=== PATIENT | male | born 1985 | race Caucasian/White ===

== ENCOUNTER 2019-01-28 23:24 | Emergency (ER) | payer OTHER ==
--- NOTE | 2019-01-28 23:51 | ED Physician Documentation ---
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 He was having a lot of pain but he cannot remember if it was really itchy. He noted improving of the redness over the course the next couple of days but the foot started to swell and the skin got all bubbly so he went to the emergency department in [place] on 24 January. He was diagnosed with athlete's foot given an antifungal spray and placed on Keflex. 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 However the foot is continuing to get red the skin is open and oozing and now he has a lesion on the left side of his nose. He remembers having to had to be switched to Bactrim for an infection in his hand in the past and wonders if he needs a different antibiotic. He had a temperature of 101 degrees 2 days ago. He has not been vomiting. He is not diabetic. He does report a history of a head injury that left him with some memory issues. Review of Systems Constitutional: reports: Fever GI: denies: Nausea Skin: reports: Rash Musculoskeletal: reports: Extremity pain, Extremity swelling Neurologic: reports: Head injury Endocrine: reports: Other (Denies diabetes) PD PAST MEDICAL HISTORY - Past Surgical History Past Surgical History: Yes - Present Medications Home Medications: Ambulatory Orders Medication Instructions Recorded Confirmed HYDROcod/ACETAM 5/325 [Vicodin 1 - 2 ea PO Q6H PRN #15 tablet 09/27/14 5/325] Ibuprofen 600 mg PO Q6HR PRN #30 tablet 09/27/14 predniSONE [Deltasone] 40 mg PO DAILY 5 Days tablet 09/27/14 Itraconazole [Onmel] 200 mg PO BID #14 tablet 01/29/19 Mupirocin [Centany] 30 gm TP BID #1 tube 01/29/19 Sulfamethox/Trimeth 800/160 1 each PO BID #14 tablet 01/29/19 [Bactrim Ds 800/160] - Allergies Allergies/Adverse Reactions: Allergies Allergy/AdvReac Type Severity Reaction Status Date / Time No Known Drug Allergies Allergy Verified 01/28/19 23:33 - Social History Does the pt smoke?: No Smoking Status: Never smoker Does the pt drink ETOH?: No Does the pt have substance abuse?: No - Immunizations Immunizations are current?: Yes - POLST Patient has POLST: No PD ED PE NORMAL - Vitals Vital signs reviewed: Yes - General General: Alert and oriented X 3, No acute distress, Well developed/nourished - HEENT HEENT: Atraumatic, PERRL, Moist mucous membranes, Other (There is a lesion on the outer aspect of his left nose with someyellow crusting on it..No lesions noted in the nose that self.) - Derm Derm: Other (The Right foot is red and swollen across the dorsal aspect. There is some light scabbing over several areas at the base of the toes particularly of the second toe on the dorsal aspect. There is cracking in between all of the digits of the skin. There is a white coating due to the antifungal powder he has been applying. The edema does not go up past the foot.) - Neuro Neuro: Alert and oriented X 3, Normal speech, Other (No gross deficits) Results - Vitals Vitals: Vital Signs - 24 hr 01/28/19 01/29/19 23:29 00:20 Temperature 36.5 C 36.7 C Heart Rate 90 78 Respiratory 16 16 Rate Blood Pressure 138/83 H 114/63 O2 Saturation 97 98 Oxygen O2 Source Room air PD MEDICAL DECISION MAKING - ED course Complexity details: d/w patient ED course: I agree that this is more like a fungal infection but there could be secondary bacterial infection. He is failed outpatient treatment with Keflex so I switched him to Bactrim and also placed him on itraconazole 200 twice daily for a week. He is counseled that if his symptoms are not improving he should follow-up with the primary care provider or even a rn spine. If he requires further treatment with oral medications many of those require monitoring with liver enzymes. He states understanding and is discharged in good condition. Departure - Departure Disposition: 01 Home, Self Care Clinical Impression: Tinea pedis of right foot, Impetigo any site, Cellulitis and abscess of foot Instructions: ED Infec Skin Cellulitis, ED Fungal Infec Athlete Foot Follow-Up: [facility] [Provider Group] Prescriptions: Itraconazole [Onmel] 200 mg PO BID #14 tablet Mupirocin [Centany] 30 gm TP BID #1 tube Sulfamethox/Trimeth 800/160 [Bactrim Ds 800/160] 1 each PO BID #14 tablet Comments: You may soak your foot in Epson salt as long as you dry it thoroughly and dry in between the toes. The mupirocin ointment is for the lesion on your nose. Stop taking the Keflex and start Bactrim twice a day. In addition you are given a prescription for an antifungal orally to take twice a day for a week. Follow-up with the primary care provider or rn spine if your symptoms are not improving. It is absolutely essential that you keep the foot dry. Discharge Date/Time: 01/29/19 00:26
[2019-01-29] MEDS ORDERED: SULFAMETH/TRIMETH DS 800/160 MG TABLET PO STA (00:19)
[2019-01-29 00:21] VITALS: BP 114/63
== END 2019-01-29 00:26 | disposition home or self-care (01) ==
LOC: ED 23:24
DX: L02.611 Cutaneous abscess of right foot (principal); L03.115 Cellulitis of right lower limb; B35.3 Tinea pedis; L01.00 Impetigo, unspecified
CPT/HCPCS: 99283; A9270